=== PATIENT | female | born 1965 | race Caucasian/White ===

== ENCOUNTER 2018-12-02 08:42 | Emergency (ER) | payer OTHER ==
--- OUTSIDE RECORDS SUMMARY | 2018-12-02 08:45 | XMS REPORT | Continuity of Care Document ---
:1965 Author Organization [facility] Care Team Providers Name Role Phone CHARLY BRIZUELA Admitting Physician CHARLY BRIZUELA Attending Physician Hospital Admission Diagnosis Code Admission Diagnosis Date PROCEDURE AND TREATMENT NOT CARRIED OUT DUE TO PATIENT LEAVING PRIOR TO BEING SEEN BY HEALTH CARE PROVIDER Social History Element Code Description Smoking Start Date End Date Description Status Code System Smoking Status [id number] Never smoker SNOMED-CT Problems Code Code System Problem Name Start Date End Date Status 58161858 SNOMED-CT Hypertensive 06/22/2017 Active disorder Medications SNOMED CT Description [id number] Drug Treatment Unknown Allergies Code Code Allergy Type Reaction Severity Start End Status System Substance Date Date 547500 RXNorm Tomato Drug Unknown Active allergy RXNorm oyster Drug Unknown Active extract allergy Results No data in the system Vital Signs No data in the system Plan of Care No data in the system Procedures No data in the system Encounters Date Code Diagnosis Status (ICD10) - Z5321 PROC&TX NOT CARRIED OUT PT LEAVE Active Immunizations No data in the system Functional Status No data in the system Hospital Discharge Instructions No data in the system
--- OUTSIDE RECORDS SUMMARY | 2018-12-02 08:45 | XMS REPORT | Continuity of Care Document ---
:1965 Author Organization [facility] Care Team Providers Name Role Phone NIKO GRAJEDA Admitting Physician NIKO GRAJEDA Attending Physician Hospital Admission Diagnosis Code Admission Diagnosis Date [id number] Essential hypertension Social History Element Code Description Smoking Start Date End Date Description Status Code System Smoking Status [id number] Current some day SNOMED-CT smoker Problems Code Code System Problem Name Start Date End Date Status 71077207 SNOMED-CT Hypertensive 06/22/2017 Active disorder Medications SNOMED CT Description 076206008 Drug Treatment Unknown Allergies Code Code Allergy Type Reaction Severity Start End Status System Substance Date Date 039771 RXNorm Tomato Drug Unknown Active allergy RXNorm oyster Drug Unknown Active extract allergy Results Laboratory Results Order: CBC PLATELET AUTO DIFF LOINC Test Result Flag Range Unit Date 73749-5 8.78 4.80-10.80 10^3/ul 06/22/2017 1Leukocytes^^correc 01:59 shawn for nucleated erythrocytes:NCnc:P t:Bld:Qn:Automated count 789-8 4.53 4.20-5.40 10^6/ul 06/22/2017 1Erythrocytes:NCnc: 01:59 Pt:Bld:Qn:Automated count 718-7 12.7 12.0-14.0 gm/dl 06/22/2017 1Hemoglobin:MCnc:Pt 01:59 :Bld:Qn 4544-3 38.9 37.0-47.0 % 06/22/2017 1Hematocrit:VFr:Pt: 01:59 Bld:Qn:Automated count 787-2 85.9 81.0-99.0 fL 06/22/2017 1Erythrocyte mean 01:59 corpuscular volume:EntVol:Pt:RB C:Qn:Automated count 785-6 28 27.0-31.0 pg 06/22/2017 1Erythrocyte mean 01:59 corpuscular hemoglobin:EntMass: Pt:RBC:Qn:Automated count 786-4 32.6 L 33.0-37.0 gm/dl 06/22/2017 1Erythrocyte mean 01:59 corpuscular hemoglobin concentration:MCnc: Pt:RBC:Qn:Automated count 788-0 15.4 H 11.5-14.5 % 06/22/2017 1Erythrocyte 01:59 distribution width:Ratio:Pt:RBC: Qn:Automated count 777-3 287 130-400 10^3/ul 06/22/2017 1Platelets:NCnc:Pt: 01:59 Bld:Qn:Automated count 27983-1 1Platelet 10.2 A 7.4-10.4 fL 06/22/2017 mean 01:59 volume:EntVol:Pt:Bl d:Qn:Automated count Note: 'NOT MEASURED' RESULTS ARE DISPLAYED WHEN THE INSTRUMENT HAS A SUPPRESSED OR UNREPORTABLE RESULT. THIS WILL MOST OFTEN HAPPEN WITH THE MPV WHEN THERE IS AN ABNORMAL PLATELET DISTRIBUTION DUE TO A CRITICAL LOW VALUE OR PLATELET CLUMPING. THE RDW MAY BE SUPPRESSED IF THERE ARE MULTIPLE PEAKS PRESENT ON THE RBC HISTOGRAM. IN THIS CASE, A MANUAL REVIEW OF THE SLIDE WILL BE PERFORMED, AND RBC MORPHOLOGY WILL BE NOTED ON THE REPORT. 770-8 1Neutrophils/100 59.1 42.0-75.0 % 06/22/2017 leukocytes:NFr:Pt:Bld:Qn:Automated 01:59 count 736-9 1Lymphocytes/100 32.8 13.0-42.0 % 06/22/2017 leukocytes:NFr:Pt:Bld:Qn:Automated 01:59 count 5905-5 1Monocytes/100 5.8 4.0-14.0 % 06/22/2017 leukocytes:NFr:Pt:Bld:Qn:Automated 01:59 count 713-8 1Eosinophils/100 1.7 1.0-3.0 % 06/22/2017 leukocytes:NFr:Pt:Bld:Qn:Automated 01:59 count 706-2 1Basophils/100 0.3 L 1.0-3.0 % 06/22/2017 leukocytes:NFr:Pt:Bld:Qn:Automated 01:59 count 1IG% 0.3 0.0-0.4 % 06/22/2017 01:59 Performing Lab Footnotes:[address] [place], [place] [id number] [place] [address] RIKY GLOVER: DIRECTOR ALLEN ACOSTA _ Order: CKMB LOINC Test Result Flag Range Unit Date 0.92 0.00-2.37 ng/ml 06/22/2017 1CKMB 01:59 Performing Lab Footnotes:[address] [place], [place] [id number] [place] [address] RIKY GLOVER: DIRECTOR ALLEN ACOSTA _ Order: CMP COMPREHENSIVE METABOLIC PANEL LOINC Test Result Flag Range Unit Date 108 75-110 mg/dl 06/22/2017 1Glucose 01:59 1BUN 9 6.0-17.0 mg/dl 06/22/2017 01:59 0.5 0.4-1.2 mg/dl 06/22/2017 1Creatinine 01:59 144 137-145 mmol/l 06/22/2017 1Sodium 01:59 3.4 L 3.5-5.0 mmol/l 06/22/2017 1Potassium 01:59 100 98-107 mmol/l 06/22/2017 1Chloride 01:59 1CO2 25 22-30 mmol/l 06/22/2017 01:59 1Anion 19 06/22/2017 Gap 01:59 9.4 8.4-10.2 mg/dl 06/22/2017 1Calcium 01:59 1T 7.1 5.1-8.7 gm/dl 06/22/2017 Protein 01:59 4.1 3.5-4.6 gm/dl 06/22/2017 1Albumin 01:59 1A/G 1.4 1.1-2.2 % 06/22/2017 Ratio 01:59 1AST 26 11-36 U/L 06/22/2017 (SGOT) 01:59 1ALT 35 11-40 U/L 06/22/2017 (SGPT) 01:59 65 47-114 U/L 06/22/2017 1Alkaline Phos 01:59 1Total 0.2 0.2-1.2 mg/dl 06/22/2017 Bilirubin 01:59 3 2.3-3.5 gm/dl 06/22/2017 1Globulin 01:59 9.3 8.4-10.2 mg/dl 06/22/2017 1Calcium, 01:59 Corrected Note: Various formulas exist for corrected serum calcium results, each yielding different values. This corrected result was based on the formula: Corrected Calcium=SerumCalcium + [0.8 * ( 4 - SerumAlbumin)] 1EGFR >60 mL/min/1.73m^2 06/22/2017 01:59 if 1EGFR >60 mL/min/1.73m^2 06/22/2017 01:59 if Non- Note: Estimated Glomerular Filtration Rate (eGFR) Reference Intervals Decision Points for 18 years and older and average body mass: >=60 Does not exclude kidney disease. 30 - 59 Suggests moderate chronic kidney disease and indicates the need for further investigation including assessment of proteinuria and cardiovascular factors. < 30 Usually indicates a need for referral for assessment and management of chronic kidney failure. Performing Lab Footnotes:[address] [place] [address] - [id number] - [facility] [address] [address] RIKY -: DIRECTOR ALLEN ACOSTA _ Order: CPK LOINC Test Result Flag Range Unit Date 57 30-135 U/L 06/22/2017 1CPK 01:59 Performing Lab Footnotes:[address] [place] [address] [id number] - [address] [place] [address] RIKY GLOVER: DIRECTOR ALLEN ACOSTA _ Order: PROTIME PT INR LOINC Test Result Flag Range Unit Date 9.4 9.0-11.8 seconds 06/22/2017 1Protime 01:59 6301-6 0.9 0.9-1.1 06/22/2017 1Coagulation 01:59 tissue factor induced.INR:R elTime:Pt:PPP :Qn:Coag Note: INR results are intended ONLY to monitor Oral Anticoagulant therapy in stablized patients. The INR Therapeutic Range is 2.0 - 3.0 Patients with a mechanical heart, the INR Range is 2.5 - 3.5 Performing Lab Footnotes:[address] [place], [place] [id number] - [address] [place] [address] RIKY GLOVER: DIRECTOR ALLEN ACOSTA _ Order: PTT PARTIAL THROMBOPLASTIN TM LOINC Test Result Flag Range Unit Date 27.9 25.3-35.7 seconds 06/22/2017 1aPTT 01:59 Performing [facility] Footnotes:[facility] [id number] [facility] [address] [place] [address] RIKY GLOVER: DIRECTOR ALLEN ACOSTA _ Order: TROPONIN I QUANTITATIVE LOINC Test Result Flag Range Unit Date <0.012 0.000-0.034 ng/ml 06/22/2017 1Troponin-I 01:59 Note: The 99th Percentile URL is 0.034 ng/mL. The Joint Society of Cardiology/[place] College of Cardiology (ESC/ACC) and the National Academy of Clinical Biochemistry Standards of Laboratory Practices (NACB) recommends that the diagnosis of AMI includes the presence of clinical history suggestive of Acute Coronary Syndrome (ACS) and a maximum concentration of cardiac troponin exceeding the 99th percentile of a normal reference population [upper reference limit (URL)] on at least one occasion during the first 24 hours after the clinical event. Performing Lab Footnotes:[address] [place] [id number] [place] [address] RIKY GLOVER: DIRECTOR ALLEN ACOSTA _ Radiology Results Order: [id number] XR CHEST AP/PA 1 VIEWExam Completion Date:06/22/2017 01:41XR CHEST AP/PA 1 VIEW, Clinical history: CP Technique: XR CHEST AP/PA 1 VIEWComparison: 2014DISCUSSION:Normal appearance of the heart, mediastinum, and pleural spaces.IMPRESSION:No acuteabnormality.This final report was electronically signed by Dr Aletha Patel MD 06/22/20173:03 AMDictated By: DANDRE PATELate: 06/22/2017 03:09 Vital Signs Vitals Value Date O2% BldC Oximetry 97 06/22/2017 BP Systolic 193 mmHg 06/22/2017 BP Diastolic 89 mmHg 06/22/2017 Respiratory Rate 15 06/22/2017 Body Temperature 97.8 F 06/22/2017 Height 64 in 06/22/2017 Weight Measured 209.43 lbs 06/22/2017 BSA (Body Surface Area) 1.58671 06/22/2017 BMI (Body Mass Index) 36.1 06/22/2017 Plan of Care No data in the system Procedures Code Code System Procedure Name Target Site Date of Procedure XR CHEST 06/22/2017 03:09 AP/PA 1 VIEW Encounters Date Code Diagnosis Status (ICD10) - I10 ESSENTIAL PRIMARY HYPERTENSION Active Immunizations No data in the system Functional Status No data in the system Hospital Discharge Instructions Discharge Instructions 2Discharge DiagnosishtnImportant InformationConsult your physician or return to the Emergency Department immediately if worse, if not better as expected, or if any problems arise.Follow Up CareYesImportant InformationPlease understand that you have received care only on an emergency basis. If your condition does notimprove, you should call your personal physician for follow-up care. If you do not have a physician,you may call the referred physician listed.If you have questions about your care or these discharge instructions, you may call the Emergency Department. Please take your discharge paperwork with you to any follow-up appointments.Follow Up CarePatient To ScheduleFollow-Up With:Primary Care PhysicianActivity LevelAs tolerated, unrestrictedDietInstructions ProvidedPatient TeachingPatient education provided
--- OUTSIDE RECORDS SUMMARY | 2018-12-02 08:45 | XMS REPORT | Continuity of Care Document ---
:1965 Author Organization [facility] Care Team Providers Name Role Phone CHARLY BRIZUELA Admitting Physician CHARLY BRIZUELA Attending Physician Hospital Admission Diagnosis Code Admission Diagnosis Date PROCEDURE AND TREATMENT NOT CARRIED OUT DUE TO PATIENT LEAVING PRIOR TO BEING SEEN BY HEALTH CARE PROVIDER Social History Element Code Description Smoking Start Date End Date Description Status Code System Smoking Status [id number] Never smoker SNOMED-CT Problems Code Code System Problem Name Start Date End Date Status 05222278 SNOMED-CT Hypertensive 06/22/2017 Active disorder Medications SNOMED CT Description 050356877 Drug Treatment Unknown Allergies Code Code Allergy Type Reaction Severity Start End Status System Substance Date Date 112543 RXNorm Tomato Drug Unknown Active allergy RXNorm [...]
--- OUTSIDE RECORDS SUMMARY | 2018-12-02 08:45 | XMS REPORT | Continuity of Care Document ---
:1965 Author Organization [facility] Care Team Providers Name Role Phone JOHN THAKUR Admitting Physician JOHN THAKUR Attending Physician Hospital Admission Diagnosis Code Admission Diagnosis Date ENCOUNTER FOR SCREENING MAMMOGRAM FOR MALIGNANT NEOPLASM OF BREAST Social History Element Code Description Smoking Start Date End Date Description Status Code System Smoking Status [id number] Light tobacco SNOMED-CT smoker Problems Code Code System Problem Name Start Date End Date Status 76869758 SNOMED-CT Hypertensive 06/22/2017 Active disorder Medications SNOMED CT Description 077327665 Drug Treatment Unknown Allergies Code Code Allergy Type Reaction Severity Start End Status System Substance Date Date 770185 RXNorm Tomato Drug Unknown Active allergy RXNorm oyster Drug Unknown Active extract allergy Results Radiology Results Order: [id number] MM MAMMO SCREEN DIR DIGITALExam Completion Date:07/26/2017 15:45Outcome:Code: 2-Benign FindingProcedures: MM MAMMO SCREEN DIR DIGITALExam Date: 07/26/2017 3:45 PMOrdering Provider: JOHN Barakat Indication: Digital screening mammography.Comparison: None availableTechnique: Digital craniocaudal and mediolateral oblique views of both breastswere obtained. Exam dictated utilizing computer-aided detection (CAD).Findings:There are scattered fibroglandular densities in each breast.Thereare no suspicious masses in either breast. There is a 9 mm nodule in thedeep upper outer left breastwith coarse calcifications typical for adegenerating fibroadenoma.There are benign calcifications ineach breast.There are no pathologic skin or nipple alterations.Impression:1. No mammographic evidence of malignancy.2. Recommend annual mammographic followup.3. Patient is entered into a reminder system with a target due date for the nextmammogram in one year.BIRADS Result 2: Benign findings.This final report was electronically signed by Dr Nicko Jang MD 07/27/20178:20 AMDictated By: Roya JANG: 07/27/2017 08:26 Vital Signs No data in the system Plan of Care No data in the system Procedures Code Code System Procedure Name Target Site Date of Procedure MM MAMMO 07/27/2017 08:27 SCREEN DIR DIGITAL Encounters Date Code Diagnosis Status (ICD10) - Z1231 ENC SCR MAMMO MALIG NEOPLASM Active BREAST Immunizations No data in the system Functional Status No data in the system Hospital Discharge Instructions No data in the system
--- OUTSIDE RECORDS SUMMARY | 2018-12-02 08:45 | XMS REPORT ---
:1965 [facility] Address [address] [place] [address] [address]. [address] [place] [address] Care Team Providers Name Role Phone JOHN THAKUR Unavailable Unavailable NIKO GRAJEDA Unavailable Unavailable Problems This patient has no known problems. Allergies, Adverse Reactions, Alerts This patient has no known allergies or adverse reactions. Medications This patient has no known medications. Results Test Description Test Time Test Comments Text Results Atomic Results Result Comments MM MAMMO SCREEN DIR 2017-07-27 08:27:03 Procedures: MM MAMMO SCREEN DIR DIGITAL DIGITALExam Date: 07/26/2017 3:45 PMOrdering Provider: JOHN Graceinical Indication: Digital screening mammography.Comparison: None availableTechnique: Digital craniocaudal and mediolateral oblique views of both breastswere obtained. Exam dictated utilizing computer-aided detection (CAD).Findings:There are scattered fibroglandular densities in each breast.There are no suspicious masses in either breast. There is a 9 mm nodule in thedeep upper outer left breast with coarse calcifications typical for adegenerating fibroadenoma.There are benign calcifications in each breast.There are no pathologic skin or nipple alterations.Impression:1. No mammographic evidence of malignancy.2. Recommend annual mammographic followup.3. Patient is entered into a reminder system with a target due date for the nextmammogram in one year.BIRADS Result 2: Benign findings.This final report was electronically signed by Dr Neelam Jang MD 07/27/20178:20 AMDictated By: NEELAM JANGDate: 07/27/2017 08:26 XR CHEST AP/PA 1 VIEW 2017-06-22 03:09:43 XR CHEST AP/PA 1 VIEW,Clinical history: CPTechnique: XR CHEST AP/PA 1 VIEWComparison: July 06 2014DISCUSSION:Normal appearance of the heart, mediastinum, and pleural spaces.IMPRESSION:No acute abnormality.This final report was electronically signed by Dr Aletha Patel MD 06/22/20173:03 AMDictated By: DANDRE PATELate: 06/22/2017 03:09 CKMB 2017-06-22 02:37:00 Test Item Value Reference Range Comments CKMB (test code=CKMB) 0.92 ng/ml 0.00-2.37 [id number] 02:37:00 Test Item Value Reference Range Comments CPK (test code=CPK) 57 U/L 30-135 TROPONIN-I [id number] 02:37:00 Test Item Value Reference Range Comments Troponin-I (test <0.012 ng/ml 0.000-0.034 The 99th Percentile URL is 0.034 code=TROP) ng/mL. The Joint Society of Cardiology/[place] College [employer] Cardiology (ESC/ACC) and the National [...] first 24 hours after the clinical event. CBC WITH AUTO [id number] 02:26:00 Test Item Value Reference Range Comments WBC (test code=WBC) 8.78 10\\S\\3/ul 4.80-10.80 RBC (test code=RBC) 4.53 10\\S\\6/ul 4.20-5.40 Hemoglobin (test code=HGB) 12.7 gm/dl 12.0-14.0 Hematocrit (test code=HCT) 38.9 % 37.0-47.0 MCV (test code=MCV) 85.9 fL 81.0-99.0 MCH (test code=MCH) 28.0 pg 27.0-31.0 MCHC (test code=MCHC) 32.6 gm/dl 33.0-37.0 RDW (test code=RDWVC) 15.4 % 11.5-14.5 Platelet (test code=PLT) 287 10\\S\\3/ul 130-400 MPV (test code=MPV) 10.2 fL 7.4-10.4 "NOT MEASURED" RESULTS ARE DISPLAYED WHEN THE INSTRUMENT HAS [...] MORPHOLOGY WILL BE NOTED ON THE REPORT. NE% (test code=NE) 59.1 % 42.0-75.0 LY% (test code=LY) 32.8 % 13.0-42.0 MO% (test code=MO) 5.8 % 4.0-14.0 EO% (test code=EO) 1.7 % 1.0-3.0 BA% (test code=BA) 0.3 % 1.0-3.0 IG% (test code=IG%) 0.3 % 0.0-0.4 [id number] 02:25:00 Test Item Value Reference Range Comments aPTT (test code=PTT) 27.9 seconds 25.3-35.7 PT AND [id number] 02:25:00 Test Item Value Reference Range Comments Protime (test code=PT) 9.4 seconds 9.0-11.8 INR (test code=INR) 0.9 0.9-1.1 INR results are intended ONLY to monitor Oral Anticoagulant therapy in stablized patients. The INR Therapeutic Range is 2.0 - 3.0 Patients with a mechanical heart, the INR Range is 2.5 - 3.5 [id number] 02:24:00 Test Item Value Reference Range Comments Glucose (test code=GLU) 108 mg/dl 75-110 BUN (test code=BUN) 9.0 mg/dl 6.0-17.0 Creatinine (test 0.5 mg/dl 0.4-1.2 code=CREA) Sodium (test code=NA) 144 mmol/l 137-145 Potassium (test code=K) 3.4 mmol/l 3.5-5.0 Chloride (test code=CL) 100 mmol/l 98-107 CO2 (test code=CO2) 25 mmol/l 22-30 Anion Gap (test 19 code=GAP) Calcium (test code=CALC) 9.4 mg/dl 8.4-10.2 T Protein (test code=TP) 7.1 gm/dl 5.1-8.7 Albumin (test code=ALB) 4.1 gm/dl 3.5-4.6 A/G Ratio (test 1.4 % 1.1-2.2 code=AGRAT) AST (SGOT) (test 26 U/L 11-36 code=AST) ALT (SGPT) (test 35 U/L 11-40 code=ALT) Alkaline Phos (test 65 U/L 47-114 code=ALKP) Total Bilirubin (test 0.2 mg/dl 0.2-1.2 code=TBIL) Globulin (test 3.0 gm/dl 2.3-3.5 code=GLOBU) Calcium, Corrected (test 9.3 mg/dl 8.4-10.2 Various formulas exist for code=CALCCORR) corrected serum calcium results, each yielding different values. This corrected result was based on the formula: Corrected Calcium=SerumCalcium + [0.8 * ( 4 - SerumAlbumin)] EGFR if >60 (test code=EGFRAA) mL/min/1.73m\\S\\2 EGFR if Non- >60 Estimated Glomerular [place] (test mL/min/1.73m\\S\\2 Filtration Rate (eGFR) code=EGFRNA) Reference Intervals Decision Points for 18 years [...]
--- NOTE | 2018-12-02 09:26 | ER ---
Nurse's Notes [facility] Name: Ena Moser Age: 53 yrs Sex: Female : 1965 Arrival Date: 12/02/2018 Time: 08:45 Bed 5 Private MD: Diagnosis: Recurrent oral aphthae Presentation: 12/02 08:58 Presenting complaint: Patient states: sores on her tongue and lip X 2 months, has taken iw antibiotics, OTC meds with no relief. Transition of care: patient was not received from another setting of care. Onset of symptoms was September 2018. Risk Assessment: Do you want to hurt yourself or someone else? Patient reports no desire to harm self or others. Initial Sepsis Screen: Does the patient meet any 2 criteria? No. Patient's initial sepsis screen is negative. Does the patient have a suspected source of infection? No. Patient's initial sepsis screen is negative. Care prior to arrival: None. 08:58 Method Of Arrival: Ambulatory iw 08:58 Acuity: DELROY 5 iw Triage Assessment: 09:00 General: Appears in no apparent distress. comfortable, obese, Behavior is cooperative, bp appropriate for age, anxious. Pain: Complains of pain in mouth. EENT: Lesions noted. Neuro: No deficits noted. Cardiovascular: No deficits noted. Respiratory: Airway is patent Respiratory effort is even, unlabored, Respiratory pattern is regular, symmetrical. GI: No signs and/or symptoms were reported involving the gastrointestinal system. : No signs and/or symptoms were reported regarding the genitourinary system. Derm: No deficits noted. Musculoskeletal: No deficits noted. PROCESS LEAD: 09: LMP N/A - Post-menopause iw Historical: - Allergies: 09:00 No Known Allergies; iw - Home Meds: 09:00 Triamterene-Hydrochlorothiazid Oral once daily [Active]; iw - PMHx: 09:00 Hypertension; iw - PSHx: 09:00 Cholecystectomy; back; iw - Immunization history:: Adult Immunizations. - Social history:: Smoking status: Patient uses tobacco products, smokes one pack cigarettes per day. Patient uses Patient/guardian denies using alcohol, street drugs, The patient lives with family, . - Ebola Screening: : Patient negative for fever greater than or equal to 101.5 degrees Fahrenheit, and additional compatible Ebola Virus Disease symptoms Patient denies exposure to infectious person Patient denies travel to an Ebola-affected area in the 21 days before illness onset No symptoms or risks identified at this time. - Family history:: not pertinent. Screenin:00 Abuse screen: Denies threats or abuse. Denies injuries from another. Nutritional bp screening: No deficits noted. Tuberculosis screening: No symptoms or risk factors identified. Fall Risk None identified. Assessment: 09:00 General: SEE TRIAGE NOTE. bp Vital Signs: 09:01 BP 180 / 81; Pulse 74; Resp 16; Temp 97.1; Pulse Ox 98% on R/A; Weight 97.52 kg; Height iw 5 ft. 4 in. (162.56 cm); Pain 8/10; 09:39 BP 167 / 82; Pulse 71; Resp 18; Temp 97.4; Pulse Ox 99% on R/A; ph 09:01 Body Mass Index 36.90 (97.52 kg, 162.56 cm) iw ED Course: 08:45 Patient arrived in ED. rg4 08:58 Carolann Corbett MD is Attending Physician. ma2 08:59 Triage completed. iw 09:00 Patient has correct armband on for positive identification. Bed in low position. Call bp light in reach. Side rails up X2. 09:01 Arm band placed on. iw 09:19 Jonathan Wilks, RN is Primary Nurse. bp 09:38 No provider procedures requiring assistance completed. Patient did not have IV access ph during this emergency room visit. Administered Medications: 09:27 Drug: Angwin 5 mg-325 mg 1 tabs Route: PO; iw 09:36 Follow up: Response: No adverse reaction; Medication administered at discharge. ph Outcome: 09:25 Discharge ordered by . ma2 09:38 Discharged to home ambulatory. ph 09:38 Condition: good 09:38 Discharge instructions given to patient, Instructed on discharge instructions, follow up and referral plans. medication usage, Demonstrated understanding of instructions, follow-up care, medications, Prescriptions given X 3. 09:39 Patient left the ED. ph Signatures: Betty Jovel RN RN Cydney Padilla RN RN Lynn Astudillo rg4 Jonathan Wilks RN RN Carolann Corbett MD MD ma2
--- NOTE | 2018-12-02 09:26 | EDPHYS ---
Physician Documentation [facility] Name: Ena Moser Age: 53 yrs Sex: Female : 1965 Arrival Date: 12/02/2018 Time: 08:45 Bed 5 Private MD: ED Physician Carolann Corbett HPI: 12/02 09:23 This 53 yrs old Female presents to ER via Ambulatory with complaints of Mouth ma2 Problem. 09:23 The patient presents with tongue sores . Onset: The symptoms/episode began/occurred ma2 gradually, 3 week(s) ago. Associated signs and symptoms: Pertinent negatives: dysphagia, pain, swelling. Severity of symptoms: At their worst the symptoms were mild, in the emergency department the symptoms are unchanged. 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 - Social history:: Smoking status: Patient uses tobacco products, smokes one pack cigarettes per day. Patient uses Patient/guardian denies using alcohol, street drugs, The patient lives with family, . - Ebola Screening: : Patient negative for fever greater than or equal to 101.5 degrees Fahrenheit, and additional compatible Ebola Virus Disease symptoms Patient denies exposure to infectious person Patient denies travel to an Ebola-affected area in the 21 days before illness onset No symptoms or risks identified at this time. - Family history:: not pertinent. ROS: 09:23 Eyes: Negative for injury, pain, redness, and discharge. ma2 09:23 All other systems are negative. Exam: 09:23 Constitutional: This is a well developed, well nourished patient who is awake, alert, ma2 and in no acute distress. Head/Face: Normocephalic, atraumatic. Eyes: Pupils equal round and reactive to light, extra-ocular motions intact. Lids and lashes normal. Conjunctiva and sclera are non-icteric and not injected. Cornea within normal limits. Periorbital areas with no swelling, redness, or edema. ENT: has mouth sores painful white x2. otherwise Nares patent. No nasal discharge, no septal abnormalities noted. Tympanic membranes are normal and external auditory canals are clear. Oropharynx with no redness, swelling, or masses, exudates, or evidence of obstruction, uvula midline. Mucous membranes moist. Neck: Trachea midline, no thyromegaly or masses palpated, and no cervical lymphadenopathy. Supple, full range of motion without nuchal rigidity, or vertebral point tenderness. No Meningismus. Chest/axilla: Normal chest wall appearance and motion. Nontender with no deformity. No lesions are appreciated. Cardiovascular: Regular rate and rhythm with a normal S1 and S2. No gallops, murmurs, or rubs. Normal PMI, no JVD. No pulse deficits. Respiratory: Lungs have equal breath sounds bilaterally, clear to auscultation and percussion. No rales, rhonchi or wheezes noted. No increased work of breathing, no retractions or nasal flaring. Vital Signs: 09:01 BP 180 / 81; Pulse 74; Resp 16; Temp 97.1; Pulse Ox 98% on R/A; Weight 97.52 kg; Height iw 5 ft. 4 in. (162.56 cm); Pain 8/10; 09:39 BP 167 / 82; Pulse 71; Resp 18; Temp 97.4; Pulse Ox 99% on R/A; ph 09:01 Body Mass Index 36.90 (97.52 kg, 162.56 cm) iw MDM: 08:58 Patient medically screened. ma2 09:23 Differential diagnosis: gingivitis, pericoronitis, aphthous ulcers, gingivostomatitis. ma2 Data reviewed: vital signs, nurses notes. Counseling: I had a detailed discussion with the patient and/or guardian regarding: the historical points, exam findings, and any diagnostic results supporting the discharge/admit diagnosis, the presence of at least one elevated blood pressure reading (>120/80) during this emergency department visit, the need for outpatient follow up. Response to treatment: the patient's symptoms have markedly improved after treatment. Administered Medications: 09:27 Drug: [place] 5 mg-325 mg 1 tabs Route: PO; iw 09:36 Follow up: Response: No adverse reaction; Medication administered at discharge. ph Disposition: 12/02/18 09:25 Discharged to Home. Impression: Recurrent oral aphthae. - Condition is Stable. - Discharge Instructions: Canker Sores. - Prescriptions for Tylenol- Codeine #3 300-30 mg Oral Tablet - take 2 tablet by ORAL route every 6 hours As needed; 30 tablet. Zithromax Z- Rasheed 250 mg Oral Tablet - take 1 tablet by ORAL route as directed for 5 days Day 1 - take two (2) tablets one time. Day 2, 3, 4 , 5 take one (1) tablet once daily.; 6 tablet. Dexamethasone 0.5 mg/5 mL Oral Elixir - wash 10 milliliters by BUCCAL route every 12 hours use as mouth rinse; 120 milliliter. - Medication Reconciliation Form, Thank You Letter, Antibiotic Education, Prescription Opioid Use form. - Follow up: Private Physician; When: Tomorrow; Reason: Continuance of care. Signatures: Betty Jovel RN RN Cydney Padilla RN RN Carolann Corbett MD MD ma2 Corrections: (The following items were deleted from the chart) 09:39 09:25 12/02/2018 09:25 Discharged to Home. Impression: Recurrent oral aphthae. ph Condition is Stable. Forms are Medication Reconciliation Form, Thank You Letter, Antibiotic Education, Prescription Opioid Use. Follow up: Private Physician; When: Tomorrow; Reason: Continuance of care. ma2
[2018-12-02] MEDS ORDERED: HYDROCODONE/APAP 5/325 MG TAB ONE (09:43)
== END 2018-12-02 09:39 | disposition home or self-care (01) ==
LOC: ER 08:42
DX: K12.0 Recurrent oral aphthae (principal); I10 Essential (primary) hypertension; F17.210 Nicotine dependence, cigarettes, uncomplicated
CPT/HCPCS: 99283